=== PATIENT | female | born 1985 ===

== ENCOUNTER 2018-03-02 10:39 | Day surgery (SDC) | payer BC ==
[~2018-03-02 10:39] MED LIST: DILAUDID IV PRN; LACTATED RINGERS 1,000 ML IV SCH; VERSED IV NR; ZOFRAN IV PRN
[2018-03-02] MEDS ORDERED: LUGOL'S SOLUTION 5% TP ONE ×2 (12:39→13:28)
[2018-03-02] MEDS ORDERED: MONSEL'S TP ONE (12:40)
[2018-03-02] MEDS ORDERED: ACETIC ACID 3% SOLN TP ONE (12:40)
[2018-03-02] MEDS ORDERED: XYLOCAINE 1%/ EPI 1:100,000 INFILTRATI ONE ×2 (12:41→13:39)
--- NOTE | 2018-03-02 12:45 | Short Stay Summary ---
Short Stay Documentation Date of service: 03/02/18 Narrative H&P: Patient is a 33 year old G0 who presents for LEEP procedure after repeated LGSIL on pap and colposcopy - History Principal diagnosis: LGSIL H&P: obtained from office Past Medical History: No medical history Past Surgical History: No surgical history Social history: single - Allergies and Medications Current Medications: Allergies phenobarbital Allergy (Verified 03/01/18 08:27) Seizure Home Medications Medication Instructions Recorded Confirmed Last Taken Type Sertraline [Zoloft] 50 mg PO DAILY 03/01/18 03/02/18 02/28/18 History Active Medications Hydromorphone HCl (Dilaudid) 0.5 mg IV Q10MIN PRN PRN Reason: Pain , Severe (7-10) Stop: 03/02/18 23:45 Lactated Ringer's (Lactated Ringers) 1,000 mls @ 100 mls/hr IV DIRECT HOA Lactated Ringer's (Lactated Ringers) 1,000 mls @ 100 mls/hr IV DIRECT HOA Last Admin: 03/02/18 11:30 Dose: 100 mls/hr Documented by: Midazolam HCl (Versed) 2 mg IV PREOP NR Stop: 03/02/18 23:59 Ondansetron HCl (Zofran) 4 mg IV ONCE PRN PRN Reason: Nausea And Vomiting Stop: 03/02/18 23:45 - Physical exam General appearance: no acute distress HEENT: Atraumatic Lungs: Clear to auscultation, Normal air movement Breasts: deferred Heart: Regular rate, Normal S1, Normal S2 Gastrointestinal: normal, normoactive bowel sounds Female Genitourinary: deferred Rectal Exam: deferred Extremities: no ischemia, No edema - Brief post op/procedure progress note Date of procedure: 03/02/18 Pre-op diagnosis: LGSIL Post-op diagnosis: same Procedure: LEEP Anesthesia: MAC Findings: erythematous cervix with ectropion Surgeon: MARK FRIEDMAN Estimated blood loss: minimal Pathology: list (endo and exo-cervix) Specimen disposition: to lab Condition: stable - Hospital course Hospital course: unremarkable - Disposition Condition at discharge: Good Disposition: DC-01 TO HOME OR SELFCARE Short Stay Discharge Plan Activity: advance as tolerated, other (nothing in the vagina) Diet: regular Follow up with: MARK FRIEDMAN MD [Staff Physician] - 14 Days PRIMARY CARE, [Primary Care Provider] - 7 Days Prescriptions: HYDROcodone/ACETAMINOPHEN [Hydrocodone-Acetamin 5-325 mg] 1 each PO Q6H #10 tablet Ibuprofen [Motrin] 800 mg PO Q8HR PRN #25 tablet PRN Reason: Pain, Mild (1-3)
[2018-03-02] MEDS ORDERED: DIPRIVAN 10 MG/ML IV ONE (13:15)
[2018-03-02] MEDS ORDERED: XYLOCAINE MPF 2% ONE (13:15)
[2018-03-02] MEDS ORDERED: DILAUDID ONE (13:19)
[2018-03-02] MEDS ORDERED: DECADRON ONE (13:20)
[2018-03-02] MEDS ORDERED: ZOFRAN ONE (13:20)
[2018-03-02] MEDS ORDERED: NACL 0.9% IR ONE (13:40)
--- NOTE | 2018-03-02 14:00 | Operative Report ---
Operative Report Operative Report: Preoperative diagnoses: Low-grade cervical dysplasia Postoperative diagnosis: Same Procedure: LEEP Surgeon: Radha Hernandez M.D. Anesthesia: MAC EBL: Minimal Urine output: 100 mL clear Complications: None Specimens: Endo and Exocervix Procedure: Patient was taken to the OR with IV running and in place. She will probably identified as herself. She was given adequate anesthesia. She was then placed in the dorsal lithotomy position and prepped and draped in normal sterile fashion. Attention was turned to the patient's vagina. Her bladder was then drained of approximately 100 mL of clear yellow urine. A bivalve speculum was placed the patient's vagina. Cervix was visualized and grasped with a sing le-tooth tenaculum. The cervix was then injected with quarter percent Marcaine at the 10,2,4 and 8 positions. Lugol's solution was then placed on the surface of the cervix. Using the green loop wire, a portion of the cervix was removed without difficulty. The base of the excision was then cauterized with the rollerball cautery. There was excellent hemostasis noted at the end of this portion of the procedure. At this point all instruments were removed from the patient's vagina. She was then awakened and taken to recovery in stable condition. She tolerated the procedure well
[2018-03-02 14:34] VITALS: BP 118/74
--- NOTE | 2018-03-02 15:35 | Anesthesia Day of Surgery ---
Anesthesia Day of Surgery - Day of Surgery Patient Examined: Yes Patient H&P Reviewed: Yes Patient is NPO: Yes
--- NOTE | 2018-03-02 15:36 | Anesthesia Consultation ---
Anesthesia Consult and Med Hx Date of service: 03/02/18 - Airway Anesthetic Teeth Evaluation: Good ROM Head & Neck: Adequate Mental/Hyoid Distance: Adequate Mallampati Class: Class I Intubation Access Assessment: Good - Pulmonary Exam CTA: Yes - Cardiac Exam Cardiac Exam: RRR - Pre-Operative Health Status ASA Pre-Surgery Classification: ASA1 Proposed Anesthetic Plan: General - Central Nervous System Hx Seizures: Yes (as ) Hx Psychiatric Problems: No - Other Systems Hx Alcohol Use: Yes (Every day) Hx Cancer: No
--- NOTE | 2018-03-02 15:36 | Post Anesthesia Evaluation ---
- Post Anesthesia Evaluation Patient Participated: Yes Airway Patent: Yes Stable Respiratory Function: Yes Nausea/Vomiting: No Temp > 96.8F: Yes Pain Manageable: Yes Adequeate Hydration: Yes Anesthesia Complications: No
== END 2018-03-02 14:55 | disposition home or self-care (01) ==
LOC: OR 10:39
PROVIDERS: ATTEND Obstetrics & Gynecology
DX: D06.1 Carcinoma in situ of exocervix (principal); D06.0 Carcinoma in situ of endocervix; Z79.899 Other long term (current) drug therapy; Z88.8 Allergy status to other drugs, medicaments and biological substances; Z72.89 Other problems related to lifestyle; Z98.890 Other specified postprocedural states
CPT/HCPCS: 57510; 81025; 88307; 88341; 88342; J1100; J1170; J2250; J2405; J2704; J7120